=== PATIENT | male | born 1980 | race African-American/Black ===

== ENCOUNTER 2017-10-18 17:26 | Emergency (ER) | payer SELFPAY ==
[~2017-10-18] VITALS: Ht 190.5 cm; Wt 84.1 kg
[~2017-10-18 17:26] MED LIST: ALBUTEROL SUL0.083 % IN; AVELOX400 MG PO; BACTRIM DS1 TAB PO; BACTROBAN TOP; CEPHALEXIN250 MG PO; CEPHALEXIN500 MG PO; FLEXERIL PO; KEFLEX500 MG PO; LEVAQUIN500 MG PO; LORTAB 5/3255 MG PO; MEDDOSEPAK PO; NAPROSYN500 MG PO; NO HOME MEDS; ROBITUSSIN AC10 ML PO; ULTRAM50 M1 PO; VENTOLIN HFA IN; VOLTAREN - GENE75 MG PO; ZITHROMAX250 MG PO
[2017-10-18] MEDS ORDERED: CEPHALEXIN500 M1 PO (19:20)
[2017-10-18] MEDS ORDERED: MEDDOSEPAK PO (19:20)
[2017-10-18] MEDS ORDERED: PROAIR HFA IN (19:20)
[2017-10-18 19:22] VITALS: BP 115/70
== END 2017-10-18 19:30 | disposition home or self-care (01) | DRG 153 ==
LOC: ED 17:26
DX: J06.9 Acute upper respiratory infection, unspecified (principal); J02.9 Acute pharyngitis, unspecified; J45.909 Unspecified asthma, uncomplicated; F17.290 Nicotine dependence, other tobacco product, uncomplicated

== ENCOUNTER 2017-10-23 08:11 | Emergency (ER) | payer SELFPAY ==
[~2017-10-23] VITALS: Ht 190.5 cm; Wt 84.0 kg
[~2017-10-23 08:11] MED LIST changes: +CEPHALEXIN500 M1 PO; +PROAIR HFA IN
[2017-10-23] MEDS ORDERED: BACTRIM DS1 TAB PO (08:43)
[2017-10-23] MEDS ORDERED: CEPHALEXIN500 M1 PO (08:43)
[2017-10-23] MEDS ORDERED: MUPIROCIN21 TOP (09:12)
[2017-10-23 09:25] VITALS: BP 124/79
== END 2017-10-23 09:25 | disposition home or self-care (01) | DRG 159 ==
LOC: ED 08:11
PROC: 0H91X0Z Drainage of Face Skin with Drainage Device, External Approach (ICD-10-PCS; principal; 2017-10-23)
DX: K12.2 Cellulitis and abscess of mouth (principal); J45.909 Unspecified asthma, uncomplicated; F17.210 Nicotine dependence, cigarettes, uncomplicated; B95.7 Other staphylococcus as the cause of diseases classified elsewhere

== ENCOUNTER 2017-10-24 17:06 | Emergency (ER) | payer SELFPAY ==
[~2017-10-24] VITALS: Ht 190.5 cm; Wt 84.0 kg
[~2017-10-24 17:06] MED LIST changes: +MUPIROCIN21 TOP
[2017-10-24 17:38] VITALS: BP 110/69
== END 2017-10-24 17:38 | disposition home or self-care (01) | DRG 951 ==
LOC: ED 17:06
DX: Z48.01 Encounter for change or removal of surgical wound dressing (principal); J45.909 Unspecified asthma, uncomplicated; F17.290 Nicotine dependence, other tobacco product, uncomplicated

== ENCOUNTER 2018-04-07 04:09 | Emergency (ER) | payer SELFPAY ==
[~2018-04-07] VITALS: Ht 190.5 cm; Wt 81.8 kg
[2018-04-07] MEDS ORDERED: LOTRISONE EX (04:27)
[2018-04-07 04:38] VITALS: BP 129/73
== END 2018-04-07 04:38 | disposition home or self-care (01) | DRG 607 ==
LOC: ED 04:09
DX: L25.9 Unspecified contact dermatitis, unspecified cause (principal); B35.3 Tinea pedis; J45.909 Unspecified asthma, uncomplicated; F17.210 Nicotine dependence, cigarettes, uncomplicated

== ENCOUNTER 2018-04-11 20:35 | Emergency (ER) | payer SELFPAY ==
[~2018-04-11] VITALS: Ht 190.5 cm; Wt 95.0 kg
[~2018-04-11 20:35] MED LIST changes: +LOTRISONE EX
[2018-04-11] MEDS ORDERED: BENADRYL 50MG C50 MG PO (21:43)
[2018-04-11] MEDS ORDERED: AMOXICILLIN500 MG PO (21:43)
[2018-04-11] MEDS ORDERED: MEDDOSEPAK PO (21:43)
[2018-04-11 22:00] VITALS: BP 167/55
== END 2018-04-11 22:25 | disposition home or self-care (01) | DRG 607 ==
LOC: ED 20:35
DX: L23.7 Allergic contact dermatitis due to plants, except food (principal); L03.116 Cellulitis of left lower limb

== ENCOUNTER 2019-05-20 | Emergency (ER) | payer BC ==
[~2019-05-20] MED LIST changes: +AMOXICILLIN500 MG PO; +BENADRYL 50MG C50 MG PO
[2019-05-20] MEDS ORDERED: MOTRIN400 MG PO (11:51)
== END 2019-05-20 12:12 | disposition home or self-care (01) | DRG 556 ==
DX: M25.512 Pain in left shoulder (principal); M25.561 Pain in right knee; S90.412A Abrasion, left great toe, initial encounter; F17.290 Nicotine dependence, other tobacco product, uncomplicated; V86.55XA Driver of 3- or 4- wheeled all-terrain vehicle (ATV) injured in nontraffic accident, initial encounter

== ENCOUNTER 2023-03-18 19:36 | Emergency (ER) | payer OTHER, BC ==
[~2023-03-18] VITALS: Ht 190.5 cm; Wt 90.3 kg
[~2023-03-18 19:36] MED LIST changes: +MOTRIN400 MG PO
[2023-03-18 20:15] VITALS: BP 124/101
[2023-03-18 20:46] VITALS: BP 112/94
[2023-03-18 21:24] LABS: BASO% 0.5 % (0-3); EOS% 9.8 % (0-8); HEMATOCRIT 40.2 % (39.0-50.0); HEMOGLOBIN 13.5 g/dl (14.0-18.0); IMMATURE GRANULOCYTES 0.2 % (0.0-5.0); LYMPH% 49.6 % (15-41); MEAN CELL VOLUME 96.6 fL CALC (80.0-100.0); MEAN CORPUSCULAR HGB 32.5 pG CALC (26.0-32.0); MEAN CORPUSCULAR HGB CONC 33.6 g/dL CAL (32.0-36.0); MONO% 9.5 % (2-13); NEUT# 1.99 thou/uL (1.82-7.42); NEUT% 30.4 % (42-76); RED BLOOD COUNT 4.16 mill/uL (4.70-6.10); RED CELL DISTRI WIDTH 12.7 % (11.5-15.5)
[2023-03-19] MEDS ORDERED: KETOROLAC TROMETHAMINE 30 MG/ML SDV IM ONE (01:20)
[2023-03-19] MEDS ORDERED: METHOCARBAMOL 500 MG/TAB PO ONE (01:20)
[2023-03-19 01:22] VITALS: BP 112/94
== END 2023-03-19 01:25 | disposition home or self-care (01) | DRG 556 ==
LOC: ED 19:36
PROVIDERS: Family Medicine
DX: M25.551 Pain in right hip (principal); J45.909 Unspecified asthma, uncomplicated; F17.200 Nicotine dependence, unspecified, uncomplicated; V43.62XA Car passenger injured in collision with other type car in traffic accident, initial encounter